=== PATIENT | female | born 1940 ===

== ENCOUNTER 2021-07-15 05:50 | Day surgery (SDC) | payer OTHER | END 2021-07-15 10:45 | disposition home or self-care (01) | LOC: AMB-ENDOS 05:50 | PROVIDERS: ATTEND Colon & Rectal Surgery | DX: D12.0 Benign neoplasm of cecum (principal); K64.1 Second degree hemorrhoids; Z20.822 Contact with and (suspected) exposure to COVID-19 ==

== ENCOUNTER 2022-10-11 06:11 | Day surgery (SDC) | payer OTHER | END 2022-10-11 10:35 | disposition home or self-care (01) | LOC: AMB-ENDOS 06:11 | PROVIDERS: ATTEND Colon & Rectal Surgery | DX: D12.2 Benign neoplasm of ascending colon (principal); D12.0 Benign neoplasm of cecum; K57.90 Diverticulosis of intestine, part unspecified, without perforation or abscess without bleeding; K64.8 Other hemorrhoids; E11.9 Type 2 diabetes mellitus without complications; I10 Essential (primary) hypertension; K92.1 Melena; Z20.822 Contact with and (suspected) exposure to COVID-19 ==